=== PATIENT | female | born 1995 | race Caucasian/White ===

== ENCOUNTER 2017-11-08 22:40 | Emergency (ER) | payer BC ==
[~2017-11-08] VITALS: Ht 152.4 cm; Wt 77.1 kg
[~2017-11-08 22:40] MED LIST: ALBUTEROL0.09 MG/A2 INH; BIRTH CONTROL1 EAC1 PO; CLEOCIN150 MG PO; LEVAQUIN750 MG PO; PREDNICOT20 MG PO; PRENATAL1 TA7 PO; TESSALON PERLE200 MG PO; ZITHROMAX Z-PA250 MG PO; ZOFRAN4 MG PO
== END 2017-11-09 00:32 | disposition home or self-care (01) ==
LOC: ED 22:40
DX: S93.402A Sprain of unspecified ligament of left ankle, initial encounter (principal); Z88.0 Allergy status to penicillin; X50.1XXA Overexertion from prolonged static or awkward postures, initial encounter; Y93.01 Activity, walking, marching and hiking; Y92.89 Other specified places as the place of occurrence of the external cause; Y99.8 Other external cause status